=== PATIENT | female | born 1980 | race Caucasian/White ===

== ENCOUNTER 2022-10-03 14:44 | Emergency (ER) | payer BC ==
[~2022-10-03] VITALS: Ht 157.5 cm; Wt 59.0 kg
[2022-10-03] MEDS ORDERED: ONDA4ODT MM (15:11)
== END 2022-10-03 15:10 | disposition home or self-care (01) ==
LOC: ER 14:44
DX: U07.1 COVID-19 (principal); R06.02 Shortness of breath; R51.9 Headache, unspecified; R11.0 Nausea; Z88.5 Allergy status to narcotic agent; Z88.8 Allergy status to other drugs, medicaments and biological substances
CPT/HCPCS: 99282

== ENCOUNTER 2022-10-08 08:57 | Emergency (ER) | payer BC ==
[~2022-10-08] VITALS: Ht 157.5 cm; Wt 63.5 kg
[~2022-10-08 08:57] MED LIST: ONDA4ODT MM
[2022-10-08 10:43] LABS: International Normalized Ratio 2.83; Prothrombin Time Results 27.8 Sec (9.7-11.5)
== END 2022-10-08 11:35 | disposition home or self-care (01) ==
LOC: ER 08:57
PROVIDERS: Physician Assistant
DX: R51.9 Headache, unspecified (principal); Z88.5 Allergy status to narcotic agent; Z88.8 Allergy status to other drugs, medicaments and biological substances
CPT/HCPCS: 36415; 70450; 85610

== ENCOUNTER 2022-10-22 01:29 | Emergency (ER) | payer BC ==
[~2022-10-22] VITALS: Ht 157.5 cm; Wt 59.0 kg
[2022-10-22] MEDS ORDERED: ZONI100 PO (02:40)
[2022-10-22] MEDS ORDERED: VIIBRYD20 MG PO (02:40)
[2022-10-22] MEDS ORDERED: GABA100 PO (02:40)
[2022-10-22] MEDS ORDERED: CATAPRES0.2 M1 (02:41)
[2022-10-22] MEDS ORDERED: Prozac40 MG PO (02:41)
[2022-10-22] MEDS ORDERED: FEROSUL325 M1 PO (02:42)
[2022-10-22] MEDS ORDERED: WARF5 PO ×2 (02:44→06:38)
[2022-10-22 02:57] LABS: BASOPHILS ABSOLUTE AUTO 0.02 K/mm3 (0.00-0.23); BASOPHILS PERCENT AUTO 0 % (0-2); EOSINOPHILS ABSOLUTE AUTO 0.17 K/mm3 (0.00-0.68); EOSINOPHILS PERCENT AUTO 3 % (0-6); Hematocrit 36.4 % (33.0-51.0); Hemoglobin 12.8 g/dL (11.5-16.0); IMMATURE GRAN ABSOLUTE AUTO 0.01 K/mm3 (0.00-0.10); IMMATURE GRAN PERCENT AUTO 0 % (0-1); LYMPHOCYTES ABSOLUTE AUTO 1.94 K/mm3 (0.84-5.20); LYMPHOCYTES PERCENT AUTO 35 % (21-46); MONOCYTES ABSOLUTE AUTO 0.57 K/mm3 (0.16-1.47); MONOCYTES PERCENT AUTO 10 % (4-13); Mean Corpuscular HGB 32.1 pg (26.0-34.0); Mean Corpuscular HGB Conc 35.2 g/dL (31.5-36.5); Mean Corpuscular Volume 91 fL (80-100); Mean Platelet Volume 11.8 fL (9.1-12.4); NEUTROPHILS ABSOLUTE AUTO 2.92 K/mm3 (1.96-9.15); NEUTROPHILS PERCENT AUTO 52 % (41-73); Platelet Count 115 K/mm3 (150-400); RDW Coefficient Variation 12.6 % (11.7-14.2); RDW Standard Deviation 41.5 fL (35.1-46.3); Red Blood Cell Count 3.99 M/mm3 (3.80-5.20); White Blood Cell Count 5.63 K/mm3 (4.00-11.30)
[2022-10-22 03:11] LABS: International Normalized Ratio 0.99; Prothrombin Time Results 10.4 Sec (9.7-11.5)
[2022-10-22 03:15] LABS: Albumin, Blood 3.7 g/dL (3.4-5.0); Albumin/Globulin Ratio 1.4 (0.8-1.8); Bilirubin, Total 0.3 mg/dL (0.1-1.0); Bun/Creatinine Ratio 16.8 (12.0-20.0); Calcium, Blood 9.1 mg/dL (8.5-10.1); Creatinine, Blood 0.83 mg/dL (0.40-1.00); Globulin, Blood 2.7 g/dL (2.2-4.0); Potassium, Blood 3.2 mmol/L (3.5-5.5); Total Protein, Blood 6.4 g/dL (6.4-8.2)
[2022-10-22 04:19] LABS: Magnesium, Blood 2.2 mg/dL (1.6-2.4)
[2022-10-22 04:27] LABS: D-Dimer, Quantitative 0.27 mg/L FEU (0.00-0.52)
[2022-10-22 04:40] LABS: Thyroid Stimulating Hormone 1.41 uIU/mL (0.360-4.800)
== END 2022-10-22 06:55 | disposition home or self-care (01) ==
LOC: ER 01:29
PROVIDERS: Student in an Organized Health Care Education/Training Program
DX: E87.6 Hypokalemia (principal); R53.83 Other fatigue; R00.1 Bradycardia, unspecified; R07.81 Pleurodynia; F17.210 Nicotine dependence, cigarettes, uncomplicated; Z88.8 Allergy status to other drugs, medicaments and biological substances; Z88.5 Allergy status to narcotic agent; Z79.899 Other long term (current) drug therapy; Z79.01 Long term (current) use of anticoagulants
CPT/HCPCS: 36415; 71045; 80053; 83735; 83880; 84443; 84484; 85025; 85379; 85610; 93005; 93010; A9270; J1885; J3010

== ENCOUNTER 2022-12-13 09:21 | Emergency (ER) | payer BC ==
[~2022-12-13] VITALS: Ht 157.5 cm; Wt 54.4 kg
[~2022-12-13 09:21] MED LIST changes: +Atarax10 MG PO; +CATAPRES0.2 M1; +CLON.5; +FEROSUL325 M1 PO; +GABA100 PO; +LAMO100 PO; +LEVE500 PO; +ONDA4ODT SL; +POTASSIUM GLUCO99 M1 PO; +Prozac40 MG PO; +VIIBRYD10 MG PO; +VIIBRYD20 MG PO; +VILAZODONE HCL10 MG PO; +WARF5 PO; +ZONI100 PO
[2022-12-13 10:08] LABS: BASOPHILS ABSOLUTE AUTO 0.02 K/mm3 (0.00-0.23); BASOPHILS PERCENT AUTO 0 % (0-2); EOSINOPHILS ABSOLUTE AUTO 0.15 K/mm3 (0.00-0.68); EOSINOPHILS PERCENT AUTO 3 % (0-6); Hematocrit 37.3 % (33.0-51.0); Hemoglobin 12.8 g/dL (11.5-16.0); IMMATURE GRAN ABSOLUTE AUTO 0.01 K/mm3 (0.00-0.10); IMMATURE GRAN PERCENT AUTO 0 % (0-1); LYMPHOCYTES ABSOLUTE AUTO 2.18 K/mm3 (0.84-5.20); LYMPHOCYTES PERCENT AUTO 38 % (21-46); MONOCYTES ABSOLUTE AUTO 0.41 K/mm3 (0.16-1.47); MONOCYTES PERCENT AUTO 7 % (4-13); Mean Corpuscular HGB Conc 34.3 g/dL (31.5-36.5); Mean Corpuscular Volume 93 fL (80-100); Mean Platelet Volume 12.2 fL (9.1-12.4); NEUTROPHILS ABSOLUTE AUTO 2.94 K/mm3 (1.96-9.15); NEUTROPHILS PERCENT AUTO 51 % (41-73); Platelet Count 136 K/mm3 (150-400); RDW Standard Deviation 41.1 fL (35.1-46.3); White Blood Cell Count 5.71 K/mm3 (4.00-11.30)
[2022-12-13 10:22] LABS: Albumin, Blood 3.6 g/dL (3.4-5.0); Albumin/Globulin Ratio 1.2 (0.8-1.8); Bilirubin, Total 0.1 mg/dL (0.1-1.0); Bun/Creatinine Ratio 17.7 (12.0-20.0); Calcium, Blood 8.6 mg/dL (8.5-10.1); Creatinine, Blood 0.79 mg/dL (0.40-1.00); Globulin, Blood 2.9 g/dL (2.2-4.0); Potassium, Blood 3.9 mmol/L (3.5-5.5); Total Protein, Blood 6.5 g/dL (6.4-8.2)
[2022-12-13 11:14] LABS: Source, Urine Clean Catch
[2022-12-13 11:36] LABS: Bilirubin, Urine Neg (Neg); Blood, Urine Neg (Neg); Glucose Qualitative, Urine Neg (Neg); Ketones, Urine Neg (Neg); Leukocyte Esterase, Urine Neg (Neg); Nitrite, Urine Neg (Neg); Protein, Urine Neg (Neg); Urobilinogen, Urine NORM (Normal)
[2022-12-13 11:38] LABS: Appearance, Urine Clear (Clear); Color, Urine Yellow (P-Yellow)
[2022-12-13] MEDS ORDERED: Norflex100 MG PO (14:04)
== END 2022-12-13 14:16 | disposition home or self-care (01) ==
LOC: ER 09:21
PROVIDERS: Emergency Medicine
DX: N83.202 Unspecified ovarian cyst, left side (principal); R07.89 Other chest pain; Z88.5 Allergy status to narcotic agent; Z88.8 Allergy status to other drugs, medicaments and biological substances; Z79.01 Long term (current) use of anticoagulants; Z79.899 Other long term (current) drug therapy
CPT/HCPCS: 36415; 71101; 74177; 80053; 81003; 85025; 93005; 93010; 96374-59; 99284-25; J2405; Q9967

== ENCOUNTER 2022-12-17 04:23 | Emergency (ER) | payer BC ==
[~2022-12-17] VITALS: Ht 157.5 cm; Wt 54.4 kg
[~2022-12-17 04:23] MED LIST changes: +Norflex100 MG PO
[2022-12-17] MEDS ORDERED: LIDO700A20 TOP (05:15)
== END 2022-12-17 05:25 | disposition home or self-care (01) ==
LOC: ER 04:23
DX: S29.011A Strain of muscle and tendon of front wall of thorax, initial encounter (principal); F17.200 Nicotine dependence, unspecified, uncomplicated; Z88.8 Allergy status to other drugs, medicaments and biological substances; Z79.899 Other long term (current) drug therapy; Z79.01 Long term (current) use of anticoagulants; X58.XXXA Exposure to other specified factors, initial encounter
CPT/HCPCS: 99283; A9270